=== PATIENT | male | born 1945 | race Caucasian/White ===

== ENCOUNTER → 2025-04-24 09:47 | Outpatient (REF) | payer MEDICARE, OTHER, SELFPAY | LOC: RAD 09:47 | PROVIDERS: ATTENDING PHYSICIAN Surgery Vascular Surgery; FAMILY PHYSICIAN Family Medicine | DX: I71.43 Infrarenal abdominal aortic aneurysm, without rupture (principal); R29.898 Other symptoms and signs involving the musculoskeletal system | CPT/HCPCS: 74174; 93925; Q9967 ==